=== PATIENT | female | born 1980 | race Caucasian/White ===

== ENCOUNTER 2016-11-14 22:27 | Emergency (ER) | payer MEDICAID, OTHER ==
[2016-11-14 22:41] VITALS: BP 155/87
[2016-11-14] MEDS ORDERED: Dexamethasone 10 MG/ML SDV PO STA (23:19)
--- NOTE | 2016-11-14 23:22 | EDM.PDOC ---
ED HPI GENERAL MEDICAL PROBLEM - General Chief Complaint: Headache Stated Complaint: NECK PAIN UP INTO HEAD Time Seen by Provider: 11/14/16 22:50 Source of Information: Reports: Patient, Family (Mother), RN notes reviewed History Limitations: Reports: No limitations - History of Present Illness INITIAL COMMENTS - FREE TEXT/NARRATIVE: The patient states that she has cervical disc disease, currently being treated by physical therapy and local injections, along with Percocet and Zanaflex, prescribed by a Neurosurgeon back home in [place]. She states that the last imaging study of her head was in June 2016. She states that she developed pain in the back of her neck going up towards her head around May 2016, but that it is worse yesterday and today. No recent injury to cause an exacerbation. She states that "everything makes it worse". She denies prior similar exacerbation. She states that while she has a history of migraines, this is not a migraine. She reports photophobia, but when I entered the room, the patient was on her cell phone. The patient reports chronic right upper extremity neuropathy, which is not changed. No new neurologic symptoms. Treatments DEMONSTRATOR KNITTING: Reports: Other (see below) Other Treatments DEMONSTRATOR KNITTING: Percocet posterior neck, face, back of head Pain Score (Numeric/FACES): 9 - Related Data Allergies Allergy/AdvReac Type Severity Reaction Status Date / Time ketorolac [From Toradol] Allergy Rash Verified 11/14/16 22:41 meperidine [From Demerol] Allergy Rash Verified 11/14/16 22:41 prednisone Allergy Rash Verified 11/14/16 22:41 prochlorperazine Allergy Rash Verified 11/14/16 22:41 [From Compazine] tamsulosin [From Flomax] Allergy Rash Verified 11/14/16 22:41 Home Meds: Home Meds Gabapentin [Neurontin] 400 mg PO TID 11/14/16 [History] Lisinopril/Hydrochlorothiazide [Lisinopril-Hctz 10-12.5 mg Tab] 1 each PO BID [History] OXcarbazepine [Trileptal] 300 mg PO BID 11/14/16 [History] SUMAtriptan Succinate [Imitrex] 25 mg PO ASDIRECTED PRN 11/14/16 [History] oxyCODONE HCl/Acetaminophen [Percocet 10-325 mg Tablet] 1 each PO TID 11/14/16 [ History] tiZANidine HCl [Zanaflex] 4 mg PO TID 11/14/16 [History] Past Medical History HEENT History: Reports: Impaired vision Cardiovascular History: Reports: High cholesterol, Hypertension Respiratory History: Reports: Asthma Genitourinary History: Reports: Renal calculus Musculoskeletal History: Reports: Arthritis, Other (see below) (Cervical disc disease, lumbar disc disease) Neurological History: Reports: Migraines Endocrine/Metabolic History: Reports: Obesity/BMI 30+ - Infectious Disease History Infectious Disease History: Reports: C-difficile, Chicken pox, MRSA - Past Surgical History GI Surgical History: Reports: Cholecystectomy, Hernia, abdominal, Other (see below) (Common bile duct diversion) Female Surgical History: Reports: section (x 2), Lithotripsy/ESWL ( x 3), Tubal ligation Neurological Surgical History: Reports: Lumbar spine (Laminectomy and discectomy ) Social & Family History - Family History Family Medical History: Noncontributory - Tobacco Use Smoking Status *Q: Current Every Day Smoker Years of Tobacco use: 20 Packs/Tins Daily: 0.3 Packs/Tins Daily Comment: Down from 3 ppd - Caffeine Use Caffeine Use: Reports: Energy drinks, Soda - Alcohol Use Alcohol Use History: No - Recreational Drug Use Recreational Drug Use: No - Living Situation & Occupation Living situation: Reports: (), with family (Mother) Occupation: unemployed ED ROS GENERAL - Review of Systems Review Of Systems: See Below Constitutional: Reports: no symptoms HEENT: Reports: No symptoms Respiratory: Reports: No Symptoms Cardiovascular: Reports: No symptoms Endocrine: Reports: no symptoms GI/Abdominal: Reports: Diarrhea : Reports: no symptoms Musculoskeletal: Reports: no symptoms Skin: Reports: no symptoms Neurological: Reports: No Symptoms Psychiatric: Reports: No symptoms Hematologic/Lymphatic: Reports: no symptoms Immunologic: Reports: no symptoms ED EXAM, GENERAL - Physical Exam Exam: See Below Exam Limited By: No limitations General Appearance: alert, WD/WN, no apparent distress Eye Exam: bilateral eye: EOMI, normal inspection, PERRL Ears: normal external exam, normal canal, hearing grossly normal, normal TMs Ear Exam: bilateral ear: auricle normal, canal normal, TM normal Nose: normal inspection, normal mucosa, no blood Throat/Mouth: Normal inspection, Normal lips, Normal teeth, Normal gums, Normal oropharynx, Normal voice, No airway compromise Head: atraumatic, normocephalic Neck: normal inspection, supple, full range of motion, tender midline Respiratory/Chest: no respiratory distress, lungs clear, normal breath sounds, no accessory muscle use Cardiovascular: normal peripheral pulses, regular rate, rhythm, no edema, no gallop, no JVD, no murmur, no rub Peripheral Pulses: 4+: radial (L), radial (R) GI/Abdominal: normal bowel sounds, soft, non tender, no organomegaly, no distention, no abnormal bruit, no mass, other (Obese) (Female) Exam: Deferred Rectal (Female) Exam: Deferred Back Exam: normal inspection, full range of motion, NT Extremities: normal inspection, normal range of motion, no pedal edema, normal capillary refill Neurological: alert, oriented, CN II-XII intact, normal cognition, normal reflexes, no motor/sensory deficits Psychiatric: normal affect Skin Exam: Warm, Dry, Intact, Normal color, No rash Lymphatic: no adenopathy Course - Vital Signs Last Recorded V/S: Last Vital Signs Temp 36.7 C 11/14/16 22:33 Pulse 79 11/14/16 22:33 Resp 18 11/14/16 22:33 BP 155/87 H 11/14/16 22:33 Pulse Ox 100 11/14/16 22:33 - Orders/Labs/Meds Meds: Medications Discontinued Medications Generic Name Dose Route Start Last Admin Trade Name Bao PRN Reason Stop Dose Admin Dexamethasone 10 mg 11/14/16 23:19 11/14/16 23:38 Dexamethasone PO 11/14/16 23:20 10 mg ONETIME STA Administration - Re-Assessments/Exams Free Text/Narrative Re-Assessment/Exam: 11/14/16 23:15 Objective findings of the patient's physical exam do not match the patient's objective complaints. She is conveniently allergic to all conventional treatments for her chronic neck problem, and arrived to the ED well after a time that I could check with her physician back in [place]. Further, the very etiology of her neck pain is questionable. Cervical degenerative disc disease can cause neck pain and cervical radiculopathy, but it will either resolve itself within 6 weeks, or surgery is indicated. I strongly suspect that the patient is drug-seeking. Departure - Departure Time of Disposition: 23:20 Disposition: Home, Self-Care 01 Condition: good Clinical Impression: Neck pain, Headache, Drug-seeking behavior Instructions: General Headache Without Cause Referrals: PCP,Unknown [Ordering Only Provider] - Forms: ED Department Discharge Additional Instructions: You were seen in the emergency room for pain in the back of your neck going up to your head. You were treated with an oral dose of dexamethasone, a steroid. Continue your usual medications, as prescribed. Followup with your Neurosurgeon once you get back home. If any other problems, please do not hesitate to return to the ER.
== END 2016-11-14 23:45 | disposition home or self-care (01) ==
LOC: JD.ED 22:27
DX: M54.2 Cervicalgia (principal); R51 Headache; Z76.5 Malingerer [conscious simulation]; E78.00 Pure hypercholesterolemia, unspecified; I10 Essential (primary) hypertension; J45.909 Unspecified asthma, uncomplicated; M19.90 Unspecified osteoarthritis, unspecified site; G43.909 Migraine, unspecified, not intractable, without status migrainosus; F17.210 Nicotine dependence, cigarettes, uncomplicated; E66.9 Obesity, unspecified; Z90.49 Acquired absence of other specified parts of digestive tract; Z98.890 Other specified postprocedural states; Z88.8 Allergy status to other drugs, medicaments and biological substances; Z88.5 Allergy status to narcotic agent; Z79.899 Other long term (current) drug therapy
CPT/HCPCS: 99283; J1100